=== PATIENT | female | born 1985 | race Caucasian/White ===

== ENCOUNTER 2018-06-22 01:09 | Emergency (ER) | payer MEDICAID, OTHER | END 2018-06-22 02:12 | disposition left against medical advice (07) | LOC: ER 01:15 | DX: K08.89 Other specified disorders of teeth and supporting structures (principal); Z53.21 Procedure and treatment not carried out due to patient leaving prior to being seen by health care provider ==

== ENCOUNTER 2018-11-16 00:07 | Emergency (ER) | payer MEDICAID ==
[~2018-11-16] VITALS: Ht 160 cm; Wt 81.6 kg
[2018-11-16 00:31] VITALS: BP 141/95
[2018-11-16] MEDS ORDERED: DexAMETHasone SOD PHOS 10MG/1ML VIAL INJ IM ONE (01:45)
[2018-11-16] MEDS ORDERED: HYDROcodone-ACET 10/325MG TAB PO ONE (01:45)
[2018-11-16] MEDS ORDERED: cefTRIAXone SOD 1,000 MG VL IM ONE (01:45)
== END 2018-11-16 02:34 | disposition home or self-care (01) ==
LOC: ER 00:16
DX: K04.7 Periapical abscess without sinus (principal); M26.31 Crowding of fully erupted teeth
CPT/HCPCS: 96372; 99283; J0696; J1100